=== PATIENT | male | born 1980 | race Caucasian/White ===

== ENCOUNTER → 2017-09-05 | Outpatient (CLI) | payer SELFPAY | LOC: M OUTALCOH 08:24 | DX: Z03.89 Encounter for observation for other suspected diseases and conditions ruled out (principal) ==

== ENCOUNTER 2017-09-15 15:05 | Outpatient (RCR) | payer SELFPAY | END 2017-10-01 | LOC: M OUTALCOH 15:05 | DX: Z03.89 Encounter for observation for other suspected diseases and conditions ruled out (principal) ==

== ENCOUNTER 2019-12-13 14:52 | Emergency (ER) | payer SELFPAY ==
[~2019-12-13] VITALS: Ht 172.7 cm; Wt 77.3 kg
[2019-12-13] MEDS ORDERED: amox (15:03)
[2019-12-13] MEDS ORDERED: AUGM875T28 PO (15:03)
[2019-12-13] MEDS ORDERED: OMEP10CASR PO (15:03)
[2019-12-13] MEDS ORDERED: ANUS2.5C2 TOP (16:39)
[2019-12-13 16:47] VITALS: BP 161/83
== END 2019-12-13 16:49 | disposition home or self-care (01) ==
LOC: M ED 14:52
DX: K64.4 Residual hemorrhoidal skin tags (principal)

== ENCOUNTER → 2020-08-18 | Outpatient (CLI) | payer OTHER ==
[~2020-08-18] MED LIST: ANUS2.5C2 TOP; AUGM875T28 PO; OMEP10CASR PO; amox
--- NOTE | 2020-08-18 14:20 | REP ---
INDICATION: PUNCTURE WOUND W/ FOREIGN BODY, CELLULITIS COMPARISON: None. TECHNIQUE: Four views left 2nd digit. FINDINGS: There is no evidence of acute fracture, dislocation, or intrinsic bone disease.There is mild soft tissue swelling. There is no radiopaque foreign body. IMPRESSION: No fracture or dislocation. No radiopaque foreign body. Mild soft tissue swelling. <Electronically signed by Adelso Dye > 08/18/20 [id number]
== END ==
LOC: M WUC 12:41
PROVIDERS: ATTEND Physician Assistant
DX: S61.241A Puncture wound with foreign body of left index finger without damage to nail, initial encounter (principal); L03.012 Cellulitis of left finger; M79.89 Other specified soft tissue disorders

== ENCOUNTER → 2022-11-23 | Outpatient (CLI) | payer OTHER ==
[2022-11-23 08:25] LABS: BASO # 0.1 10^3/uL (0.0-0.2); BASO % 1.3 % (0.0-1.0); EOS # 0.3 10^3/uL (0.0-0.5); EOS % 5.4 % (0.0-3.0); HEMATOCRIT 47.2 % (42.0-52.0); HEMOGLOBIN 16.5 g/dl (13.5-17.5); LYMPH # 1.9 10^3/uL (1.5-5.0); LYMPH % 30.7 % (24.0-44.0); MEAN CORPUSCULAR HEMOGLOBIN 31.7 pg (27.0-33.0); MEAN CORPUSCULAR VOLUME 90.6 fl (80.0-96.0); MONO # 0.5 10^3/uL (0.0-0.8); MONO % 8.7 % (2.0-8.0); NEUTROPHILS # 3.3 10^3/uL (1.5-8.5); NEUTROPHILS % 53.6 % (36.0-66.0); PLATELET COUNT, AUTOMATED 354 10^3/uL (150-450); RED BLOOD COUNT 5.21 10^6/uL (4.30-6.10); WHITE BLOOD COUNT 6.1 10^3/uL (4.0-10.0)
[2022-11-23 08:47] LABS: ALBUMIN 3.9 G/DL (3.2-5.2); ALKALINE PHOSPHATASE 79 U/L (46-116); ALT/SGPT 29 U/L (7.0-40); AST/SGOT 11 U/L (<34); BILIRUBIN,TOTAL 0.6 MG/DL (0.3-1.2); BLOOD UREA NITROGEN 15 MG/DL (9-23); CALCIUM LEVEL 9.4 MG/DL (8.5-10.1); CARBON DIOXIDE LEVEL 27 MMOL/L (20-31); CHLORIDE LEVEL 106 MMOL/L (98-107); CHOLESTEROL LEVEL 201 MG/DL (<200); CHOLESTEROL RISK RATIO 3.44 (<5); GLOMERULAR FILTRATION RATE > 60.0 (>60); GLUCOSE, FASTING 111 MG/DL (60-100); HDL CHOLESTEROL 58.4 MG/DL (>40); LDL CHOLESTEROL 119.4 MG/DL (<100); NON-HDL-C 142.6 MG/DL; POTASSIUM SERUM 4.6 MMOL/L (3.5-5.1); SODIUM LEVEL 140 MMOL/L (136-145); TOTAL PROTEIN 6.6 G/DL (5.7-8.2); TRIGLYCERIDES LEVEL 116 MG/DL (<150)
== END ==
LOC: M LAB 07:35
PROVIDERS: ATTEND Family Medicine
DX: Z00.00 Encounter for general adult medical examination without abnormal findings (principal)

== ENCOUNTER → 2023-01-14 | Day surgery (SDC) | payer OTHER ==
[~2023-01-14] VITALS: Ht 172.7 cm; Wt 74.4 kg
[~2023-01-14] MED LIST changes: +CelecoXIB 400 MG CAP PO ONE; +LIDOCAINE 2% 100MG/5ML SDV (FOR ANES.) As Ordered ONE; +LR 1,000 ML IV SCH; +MIDAZOLAM INJ 2MG/2ML VIAL As Ordered ONE; +OMEP40CA4 PO; +ROCURONIUM BROMIDE 50MG/5ML VIAL As Ordered ONE; +ceFAZolin SOD 2 GM in IV 1 EA IV ONE; +fentaNYL 100 MCG/2 ML INJECTION As Ordered ONE; +propofoL 200 MG/20 ML VIAL As Ordered ONE
[2023-01-14 14:08] VITALS: BP 135/87; TEMP 98.1; O2SAT 98
== END | disposition home or self-care (01) ==
LOC: M SDC 14:04
PROVIDERS: ATTEND Surgery
DX: K42.9 Umbilical hernia without obstruction or gangrene (principal); K40.90 Unilateral inguinal hernia, without obstruction or gangrene, not specified as recurrent; Z53.8 Procedure and treatment not carried out for other reasons